=== PATIENT | male | born 1995 | race Caucasian/White ===

== ENCOUNTER 2017-08-31 18:28 | Emergency (ER) | payer MEDICAID ==
[~2017-08-31] VITALS: Ht 180.3 cm; Wt 82.0 kg
[2017-08-31 21:50] LABS: BASOPHILS % 0.7 % (0.0-2.0); LYMPHOCYTES % 30.1 % (20.0-50.0); MEAN CORPUSCULAR HEMOGLOBIN 30.9 pg (28.0-32.0); MEAN CORPUSCULAR VOLUME 90.7 fL (80.0-94.0); MEAN PLATELET VOLUME 7.9 fl (7.4-10.4); MONOCYTES % 9.1 % (2.0-8.0); NEUTROPHILS % 59.1 % (40.0-76.0); PLATELET 214 x1000/uL (130-400); RED BLOOD CELL COUNT 4.85 mill/uL (4.7-6.1); RED CELL DISTRIBUTION WIDTH 13.4 % (11.6-14.6)
[2017-08-31 21:56] LABS: CHLORIDE 105 mEq/L (98-107)
[2017-08-31 22:10] VITALS: BP 136/86
== END 2017-08-31 22:15 | disposition home or self-care (01) ==
LOC: ER 18:32
DX: G57.90 Unspecified mononeuropathy of unspecified lower limb (principal); F12.10 Cannabis abuse, uncomplicated
CPT/HCPCS: 36415; 80048; 85025; 99284

== ENCOUNTER 2020-11-18 20:38 | Emergency (ER) | payer MEDICAID ==
[~2020-11-18] VITALS: Ht 180.3 cm; Wt 84.0 kg
[2020-11-18] MEDS ORDERED: KETOROLAC 60MG/2ML VIAL IM ONE (21:45)
[2020-11-18] MEDS ORDERED: IBUP-2029 PO (23:00)
[2020-11-18 23:10] VITALS: BP 129/88
== END 2020-11-18 23:11 | disposition home or self-care (01) ==
LOC: ER 21:19
DX: S93.402A Sprain of unspecified ligament of left ankle, initial encounter (principal); F12.10 Cannabis abuse, uncomplicated; Y08.89XA Assault by other specified means, initial encounter; Y93.89 Activity, other specified; Y92.89 Other specified places as the place of occurrence of the external cause; Y99.8 Other external cause status
CPT/HCPCS: 73610; 99283; J1885

== ENCOUNTER 2023-12-18 13:36 | Emergency (ER) | payer MEDICAID ==
[~2023-12-18] VITALS: Ht 180.3 cm; Wt 87.0 kg
[~2023-12-18 13:36] MED LIST: IBUP-2029 PO
[2023-12-18 13:51] VITALS: O2SAT 96
[2023-12-18 15:12] VITALS: TEMP 98.3
[2023-12-18] MEDS: ACETAMINOPHEN 325MG TABLET PO ONE (15:12)
[2023-12-18] MEDS ORDERED: LIDO700A15 TP (15:40)
[2023-12-18 15:48] VITALS: BP 110/60; PULSE 15; RESP 12
== END 2023-12-18 16:41 | disposition home or self-care (01) ==
LOC: ER 13:36
DX: S80.01XA Contusion of right knee, initial encounter (principal); Q05.9 Spina bifida, unspecified; Z98.890 Other specified postprocedural states; W18.30XA Fall on same level, unspecified, initial encounter; Y93.67 Activity, basketball; Y92.89 Other specified places as the place of occurrence of the external cause; Y99.8 Other external cause status
CPT/HCPCS: 73560; 99283